=== PATIENT | male | born 1970 | race Caucasian/White ===

== ENCOUNTER 2024-10-26 11:14 | Emergency (ER) | payer BC, SELFPAY ==
[~2024-10-26] VITALS: Ht 167.6 cm; Wt 109.1 kg
[2024-10-26 11:27] VITALS: TEMP 98.1
[2024-10-26 11:54] LABS: BASO # 0.1 10^3/uL (0.0-0.2); BASO % 0.6 % (0.0-1.0); EOS # 0.1 10^3/uL (0.0-0.5); EOS % 1.4 % (0.0-3.0); HEMATOCRIT 44.6 % (42.0-52.0); HEMOGLOBIN 15.3 g/dl (13.5-17.5); LYMPH # 1.5 10^3/uL (1.5-5.0); LYMPH % 18.2 % (24.0-44.0); MEAN CORPUSCULAR HEMOGLOBIN 28.5 pg (27.0-33.0); MEAN CORPUSCULAR HGB CONC 34.3 g/dl (32.0-36.5); MEAN CORPUSCULAR VOLUME 83.1 fl (80.0-96.0); MONO # 0.5 10^3/uL (0.0-0.8); MONO % 6.6 % (2.0-8.0); NEUTROPHILS # 5.9 10^3/uL (1.5-8.5); PLATELET COUNT, AUTOMATED 241 10^3/uL (150-450); RED BLOOD COUNT 5.37 10^6/uL (4.30-6.10)
[2024-10-26 12:06] LABS: INR 1.09; PROTHROMBIN TIME 14.4 SECONDS (12.5-14.5)
[2024-10-26 12:18] LABS: CK-MB VALUE MASS < 1.0 NG/ML (<3.6); LIPASE 28 U/L (12-53)
[2024-10-26 12:20] LABS: ALBUMIN 3.9 G/DL (3.2-5.2); ALKALINE PHOSPHATASE 93 U/L (40-129); ALT/SGPT 70 U/L (7.0-40); AST/SGOT 39 U/L (<34); BILIRUBIN,DIRECT 0.2 MG/DL (<0.4); BILIRUBIN,TOTAL 0.6 MG/DL (0.3-1.2); BLOOD UREA NITROGEN 17 MG/DL (9-23); CALCIUM LEVEL 9.3 MG/DL (8.5-10.1); CARBON DIOXIDE LEVEL 24 MMOL/L (20-31); CHLORIDE LEVEL 105 MMOL/L (98-107); CREATININE FOR GFR 0.87 MG/DL (0.70-1.30); GLOMERULAR FILTRATION RATE > 60.0 (>56); GLUCOSE, FASTING 200 MG/DL (60-100); POTASSIUM SERUM 3.6 MMOL/L (3.5-5.1); SODIUM LEVEL 141 MMOL/L (136-145); TOTAL PROTEIN 6.9 G/DL (5.7-8.2)
[2024-10-26 12:24] LABS: CPK CREATINE PHOSPHOKINASE 93 U/L (46-171); MB/CK RELATIVE INDEX 1.07 (< OR =4)
[2024-10-26] MEDS: ASPIRIN 81MG CHEW TABLET PO ONE (12:52)
[2024-10-26] MEDS: MORPHINE 4 MG/ML 1ML VIAL IV ONE (12:54)
[2024-10-26 12:58] VITALS: BP 189/105
[2024-10-26] MEDS: NITROGLYCERIN 0.4MG SUBL TABLET SL PRN (12:58)
[2024-10-26] MEDS ORDERED: ISOVUE-370 76% 100ML VIAL As Ordered ONE (13:05)
[2024-10-26 13:51] LABS: CK-MB VALUE MASS < 1.0 NG/ML (<3.6)
[2024-10-26 13:56] LABS: CPK CREATINE PHOSPHOKINASE 98 U/L (46-171); MB/CK RELATIVE INDEX 1.02 (< OR =4)
[2024-10-26 15:57] LABS: CK-MB VALUE MASS < 1.0 NG/ML (<3.6)
[2024-10-26 15:59] LABS: CPK CREATINE PHOSPHOKINASE 107 U/L (46-171); MB/CK RELATIVE INDEX 0.93 (< OR =4)
[2024-10-26] MEDS ORDERED: PERC5TAB12 PO (16:20)
[2024-10-26 18:00] VITALS: BP 120/60; O2SAT 97
== END 2024-10-26 18:18 | disposition home or self-care (01) ==
LOC: M ED 11:14 → EDBD 11:14 → M ED 18:18
DX: R91.8 Other nonspecific abnormal finding of lung field (principal); R07.9 Chest pain, unspecified; R00.0 Tachycardia, unspecified; S42.112A Displaced fracture of body of scapula, left shoulder, initial encounter for closed fracture; Y92.9 Unspecified place or not applicable; Y93.9 Activity, unspecified; Y99.9 Unspecified external cause status; M25.562 Pain in left knee; I10 Essential (primary) hypertension; K21.9 Gastro-esophageal reflux disease without esophagitis; Z88.1 Allergy status to other antibiotic agents; Z79.1 Long term (current) use of non-steroidal anti-inflammatories (NSAID)
CPT/HCPCS: 36415; 71045; 71275; 73030; 73564; 73700; 80048; 80076; 82550; 82553; 83690; 84484; 85025; 85610; 93005; 93041; 94760; 96374; 99285; Q9967

== ENCOUNTER 2024-11-17 22:37 | Emergency (ER) | payer BC, SELFPAY ==
[~2024-11-17] VITALS: Ht 167.6 cm; Wt 120.0 kg
[~2024-11-17 22:37] MED LIST: PERC5TAB12 PO
[2024-11-17 22:40] VITALS: BP 180/118; TEMP 97.6; O2SAT 96
[2024-11-17] MEDS ORDERED: AMOX875T2 (22:46)
[2024-11-17] MEDS ORDERED: ACET300T47 (22:46)
== END 2024-11-17 23:46 | disposition left against medical advice (07) ==
LOC: M ED 22:37
DX: Z53.21 Procedure and treatment not carried out due to patient leaving prior to being seen by health care provider (principal)